=== PATIENT | female | born 1960 | race Caucasian/White ===

== ENCOUNTER 2017-03-07 00:56 | Emergency (ER) | payer MEDICAID ==
[~2017-03-07] VITALS: Ht 170.2 cm; Wt 75.0 kg
[~2017-03-07 00:56] MED LIST: 1-ME1LIQ PO; DEPA500T3 PO; PENI500T PO; SYNT25TA PO
[2017-03-07 01:04] VITALS: BP 138/72; PULSE 93; RESP 16; TEMP 98.2; O2SAT 95
[2017-03-07] MEDS ORDERED: AMLO2.5T PO (01:15)
[2017-03-07] MEDS ORDERED: SYNT25TA PO (01:15)
[2017-03-07] MEDS ORDERED: DEPA500T3 PO (01:15)
[2017-03-07] MEDS ORDERED: MELO7.5T4 PO (01:15)
[2017-03-07 01:42] LABS: AUTOMATED NEUTROPHIL # 3.3 TH/MM3 (1.8-7.7); BASOPHIL % 0.6 % (0.0-2.0); EOSINOPHIL # 0.2 TH/MM3 (0-0.4); EOSINOPHIL % 2.4 % (0.0-4.0); HEMATOCRIT 42.7 % (35.0-46.0); HEMO FLAGS DIFF FINAL; LYMPH % 43.5 % (9.0-44.0); LYMPHOCYTE # 3.2 TH/MM3 (1.0-4.8); MEAN CELL VOLUME 90.1 FL (80.0-100.0); MEAN CORPUSCULAR HEMOGLOBIN 31.5 PG (27.0-34.0); MONO % 8.4 % (0.0-8.0); NEUT % 45.1 % (16.0-70.0); PLATELET COUNT 246 TH/MM3 (150-450); RED BLOOD COUNT 4.74 MIL/MM3 (4.00-5.30); RED CELL DISTRIBUTION WIDTH 13.1 % (11.6-17.2); WHITE BLOOD COUNT 7.3 TH/MM3 (4.0-11.0)
[2017-03-07 01:52] LABS: ALT (GPT) 28 U/L (10-53); ANION GAP 10 MEQ/L (5-15); AST (GOT) 24 U/L (15-37); BICARBONATE 23.2 MEQ/L (21.0-32.0); BLOOD UREA NITROGEN 7 MG/DL (7-18); CHLORIDE 100 MEQ/L (98-107); GLOMERULAR FILTRATION RATE 82 ML/MIN (>89); POTASSIUM 3.6 MEQ/L (3.5-5.1); SODIUM (NA) 133 MEQ/L (136-145)
[2017-03-07 01:52] LABS: BLOOD, URINE NEG (NEG); COMMENT (UR) CULT NOT INDICATED; CULTURE IF INDICATED CULT NOT INDICATED; GLUCOSE,URINE NEG (NEG); KETONE, URINE NEG (NEG); NITRITE,URINE NEG (NEG); SQUAMOUS EPITHELIAL CELL URINE <1 /hpf (0-5); URINE COLOR LIGHT-YELLOW (YELLW/STRAW)
[2017-03-07 01:55] LABS: AMPHETAMINE, URINE NEG (NEG); BARBITURATES, URINE NEG (NEG); COCAINE, URINE NEG (NEG)
[2017-03-07 02:01] LABS: ALKALINE PHOSPHATASE 103 U/L (45-117); TOTAL BILIRUBIN ADULT 0.4 MG/DL (0.2-1.0)
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
[2017-03-07 07:19] VITALS: BP 132/92; PULSE 88; RESP 18; TEMP 98; O2SAT 97
[2017-03-07 09:45] VITALS: BP 135/81
[2017-03-07 09:55] VITALS: BP 131/77; PULSE 87; RESP 18; TEMP 97.6; O2SAT 96
[2017-03-07] MEDS ORDERED: OLANZapine IM 10 MG VIAL IM ONE (11:25)
== END 2017-03-07 12:00 | disposition home or self-care (01) ==
LOC: NEPE 00:56 → NEPJ 12:00
DX: F10.129 Alcohol abuse with intoxication, unspecified (principal); Y90.6 Blood alcohol level of 120-199 mg/100 ml; R45.851 Suicidal ideations; I10 Essential (primary) hypertension; G47.30 Sleep apnea, unspecified; B19.20 Unspecified viral hepatitis C without hepatic coma; E03.9 Hypothyroidism, unspecified; F17.210 Nicotine dependence, cigarettes, uncomplicated
CPT/HCPCS: 80053; 80164; 80307; 81001; 84443; 85025; 99284